=== PATIENT | female | born 1990 | race American Indian/Alaskan Native ===

== ENCOUNTER 2016-10-18 00:33 | Emergency (ER) | payer BC ==
[2016-10-18] MEDS ORDERED: ZOFRAN IV ONE ×2 (00:51→01:58)
[2016-10-18 01:24] LABS: Basophils % (Auto) 0.7 % (0.0-1.8); Eosinophils % (Auto) 0.7 % (0.0-4.3); Hematocrit 40.2 % (30.3-42.9); Hemoglobin 13.4 gm/dl (10.1-14.3); Mean Corpuscular HGB Conc 34 % (30-34); Mean Corpuscular Hemoglobin 33 pg (28-32); Mean Corpuscular Volume 97 fl (79-97); Platelet Count 175 K/mm3 (140-440); Red Blood Count 4.13 M/mm3 (3.65-5.03); Red Cell Distribution Width 12.6 % (13.2-15.2)
[2016-10-18 01:39] LABS: Anion Gap 17 mmol/L; Blood Urea Nitrogen 14 mg/dL (7-17); Calcium 8.8 mg/dL (8.4-10.2); Carbon Dioxide 22 mmol/L (22-30); Glucose 103 mg/dL (65-100); Sodium 138 mmol/L (137-145)
--- NOTE | 2016-10-18 01:57 | Emergency Department Report ---
ED N/V/D HPI - General Chief complaint: Nausea/Vomiting/Diarrhea Stated complaint: STOMACH PAIN/EMESIS Time Seen by Provider: 10/18/16 01:45 Source: patient Mode of arrival: Ambulatory Limitations: No Limitations - History of Present Illness Initial comments: This is a 26-year-old female who indicates that she started becoming nauseous throughout the day today. She also has some epigastric pain associated with this as well. She denies any diarrhea. She is actually had emesis several times today as well. This is cost her epigastric pain didn't worsen. She denies any sick contacts or questionable foods. She denies any radiation of this pain she describes it as sharp in nature. Denies a history of dyspepsia in general. Associated Symptoms: loss of appetite. denies: chest pain, cough, headaches, shortness of breath - Related Data Previous Rx's Medication Instructions Recorded Last Taken Type Ondansetron [Zofran TAB] 4 mg PO Q8HR PRN #10 tablet 10/18/16 Unknown Rx oxyCODONE /ACETAMINOPHEN [Percocet 1 tab PO Q6HR PRN #20 tablet 10/18/16 Unknown Rx 5/325] Allergies Allergy/AdvReac Type Severity Reaction Status Date / Time No Known Allergies Allergy Verified 10/18/16 01:48 ED Review of Systems ROS: Stated complaint: STOMACH PAIN/EMESIS Other details as noted in HPI Comment: All other systems reviewed and negative Constitutional: denies: chills, fever Eyes: denies: eye pain, eye discharge, vision change ENT: denies: ear pain, throat pain Respiratory: denies: cough, shortness of breath, wheezing Cardiovascular: denies: chest pain, palpitations Endocrine: no symptoms reported Gastrointestinal: abdominal pain, nausea, vomiting, other (anorexia). denies: diarrhea Genitourinary: denies: urgency, dysuria, discharge Musculoskeletal: denies: back pain, joint swelling, arthralgia Skin: denies: rash, lesions Neurological: denies: headache, weakness, paresthesias Psychiatric: denies: anxiety, depression Hematological/Lymphatic: denies: easy bleeding, easy bruising ED Past Medical Hx - Past Medical History Previous Medical History?: No - Surgical History Past Surgical History?: No - Social History Smoking Status: Never Smoker - Medications Home Medications: Home Medications Medication Instructions Recorded Confirmed Last Taken Type Ondansetron [Zofran TAB] 4 mg PO Q8HR PRN #10 tablet 10/18/16 Unknown Rx oxyCODONE /ACETAMINOPHEN [Percocet 1 tab PO Q6HR PRN #20 tablet 10/18/16 Unknown Rx 5/325] ED Physical Exam - General Limitations: No Limitations General appearance: alert, in distress (due to pains) - Head Head exam: Present: atraumatic, normocephalic - Eye Eye exam: Present: normal appearance, EOMI. Absent: scleral icterus - ENT ENT exam: Present: normal exam, normal orophraynx, mucous membranes moist - Neck Neck exam: Present: normal inspection. Absent: meningismus, lymphadenopathy - Respiratory Respiratory exam: Present: normal lung sounds bilaterally. Absent: respiratory distress, wheezes, rales - Cardiovascular Cardiovascular Exam: Present: regular rate, normal rhythm. Absent: systolic murmur, diastolic murmur, rubs, gallop - GI/Abdominal GI/Abdominal exam: Present: soft, tenderness (epigastric, minimal), normal bowel sounds. Absent: guarding - Extremities Exam Extremities exam: Present: normal inspection. Absent: tenderness, pedal edema, calf tenderness - Back Exam Back exam: Present: normal inspection. Absent: tenderness, CVA tenderness (R), CVA tenderness (L) - Neurological Exam Neurological exam: Present: alert, oriented X3 - Psychiatric Psychiatric exam: Present: normal affect, normal mood - Skin Skin exam: Present: warm, dry, intact, normal color. Absent: rash ED Course Vital Signs 10/18/16 10/18/16 10/18/16 00:38 00:45 00:52 Temperature 98.7 F 98.7 F 98 F Pulse Rate 76 76 80 Respiratory 18 18 Rate Blood Pressure 116/78 Blood Pressure 128/82 111/78 [Right] O2 Sat by Pulse 97 100 98 Oximetry - Reevaluation(s) Reevaluation #1: 10/18/16 04:39 Patient's pain appears to be out of proportion to exam findings. I'm suspicious of dyspepsia versus gastritis as the etiology for her discomforts. Difficult to know which came first meaning nausea vomiting leading to the dyspepsia/gastritis versus alternative. Regardless at this point I have started her on antacids as well as vacation for pain and nausea. She has been given 2 L saline bolus to help her get back on top of things. I think she'll do well as an outpatient. I did encourage her to be very glad with her diet. Labs are noted again. No specific concerning findings were noted on these. Bedside ultrasound was performed as well this did demonstrate moderately dilated gallbladder with no wall thickening. There is some small amount of sludge and debris that is dependent noted in the gallbladder. She does sonographically have some tenderness over the gallbladder as well. I do not feel this is the primary etiology of her discomfort spell she has normal LFTs as well as a normal life to lipase and alkaline phosphatase. Patient does have some medical knowledge. She is completely agreeable to coming to the hospital if her pain persists or worsens. Otherwise stable time. ED Medical Decision Making - Lab Data Result diagrams: 10/18/16 Unknown 10/18/16 Unknown Critical care attestation.: If time is entered above; I have spent that time in minutes in the direct care of this critically ill patient, excluding procedure time. ED Disposition Clinical Impression: Abdominal pain Qualifiers: Abdominal location: epigastric Qualified Code(s): R10.13 - Epigastric pain Nausea & vomiting Qualifiers: Vomiting type: unspecified Vomiting Intractability: non-intractable Qualified Code(s): R11.2 - Nausea with vomiting, unspecified Disposition: DISCHARGED TO HOME OR SELFCARE Is pt being admited?: No Does the pt Need Aspirin: No Condition: Stable Instructions: Acute Nausea and Vomiting (ED) Additional Instructions: Gradually advance your diet as tolerated. Eat a bland diet. Take your pain medication as needed. Return if your pain persists or worsens. Prescriptions: Ondansetron [Zofran TAB] 4 mg PO Q8HR PRN #10 tablet PRN Reason: Nausea oxyCODONE /ACETAMINOPHEN [Percocet 5/325] 1 tab PO Q6HR PRN #20 tablet PRN Reason: Pain Referrals: PRIMARY CARE, [Referring] - 3-5 Days Forms: Work/School Release Form(ED) Time of Disposition: 03:27
[2016-10-18] MEDS ORDERED: DILAUDID IV ONE (01:58)
[2016-10-18] MEDS ORDERED: NACL 0.9% 1000 ML 1,000 ML IV ONE ×2 (01:58→02:52)
[2016-10-18 02:38] LABS: Alanine Aminotransferase 10 units/L (7-56); Albumin 3.9 g/dL (3.9-5); Albumin/Globulin Ratio 1.2 %; Alkaline Phosphatase 52 units/L (35-129); Bilirubin,Total 0.5 mg/dL (0.1-1.2); Lipase 31 units/L (13-60); Total Protein 7.2 g/dL (6.3-8.2)
[2016-10-18 02:39] LABS: Bilirubin,Direct < 0.2 mg/dL (0-0.2); Bilirubin,Indirect 0.3 mg/dL
[2016-10-18 05:00] VITALS: BP 111/64
[2016-10-18 17:13] LABS: Bilirubin,Urine NEG (Negative); Blood,Urine LG (Negative); Ketones,Urine 20 mg/dL (Negative); Leukocyte Esterase,Urine NEG (Negative); Nitrite,Urine NEG (Negative); Protein,Urine <15 mg/dL mg/dL (Negative); Urobilinogen,Urine < 2.0 mg/dL (<2.0); WBC,Urine < 1.0 /HPF (0.0-6.0)
[2016-10-18 17:21] LABS: RBC,Urine < 1.0 /HPF (0.0-6.0)
== END 2016-10-18 04:58 | disposition home or self-care (01) ==
LOC: ED 00:33
DX: R10.13 Epigastric pain (principal); R11.2 Nausea with vomiting, unspecified
CPT/HCPCS: 36415; 80048; 80074; 81001; 81025; 83690; 85025; 96361; 96374; 96375; 96376; 99283; J1170; J2405; J7030

== ENCOUNTER 2016-10-18 14:07 | Inpatient (IN) | payer BC ==
[2016-10-18] MEDS ORDERED: ZOFRAN IV ONE (14:40)
[2016-10-18] MEDS ORDERED: NACL 0.9% 1000 ML 1,000 ML IV ONE (14:40)
[2016-10-18] MEDS ORDERED: MORPHINE IV ONE (14:40)
--- NOTE | 2016-10-18 14:54 | Emergency Department Report ---
ED Abdominal Pain HPI - General Chief Complaint: Abdominal Pain Stated Complaint: ABD PAIN/VOMITTING Time Seen by Provider: 10/18/16 14:22 Source: patient, old records reviewed Mode of arrival: Ambulatory Limitations: No Limitations - History of Present Illness Initial Comments: 26-year-old female presents to the emergency department complaining of abdominal pain. Patient was seen in the emergency department last night for the same complaints. She reports onset of epigastric and right upper quadrant abdominal pain and partially 9 PM last night after eating a hamburger. Patient describes sharp, nonradiating pain. She reports nausea and multiple episodes of vomiting. Emesis has been green to yellow in color. There has been no fever or diarrhea. On her previous visit to the emergency department, patient received IV fluids and medication. She was feeling better. She had labs are unremarkable and a bedside ultrasound showing a distended gallbladder with sludge without evidence of pericholecystic fluid or thickened gallbladder wall. There are no other complaints. MD Complaint: abdominal pain -: Sudden, Last night Time: 21:00 Location: RUQ, epigastric Radiation: none Migration to: no migration Severity: moderate Severity scale (0 -10): 6 Quality: sharp Consistency: constant Improves With: nothing Worsens With: nothing Associated Symptoms: nausea, vomiting - Related Data Previous Rx's Medication Instructions Recorded Last Taken Type Ondansetron [Zofran TAB] 4 mg PO Q8HR PRN #10 tablet 10/18/16 Unknown Rx oxyCODONE /ACETAMINOPHEN [Percocet 1 tab PO Q6HR PRN #20 tablet 10/18/16 Unknown Rx 5/325] Allergies Allergy/AdvReac Type Severity Reaction Status Date / Time No Known Allergies Allergy Verified 10/18/16 01:48 ED Review of Systems ROS: Stated complaint: ABD PAIN/VOMITTING Other details as noted in HPI Comment: All other systems reviewed and negative Gastrointestinal: abdominal pain, nausea, vomiting ED Past Medical Hx - Past Medical History Previous Medical History?: No - Surgical History Past Surgical History?: No - Family History Family history: no significant - Social History Smoking Status: Never Smoker Substance Use Type: None - Medications Home Medications: Home Medications Medication Instructions Recorded Confirmed Last Taken Type Ondansetron [Zofran TAB] 4 mg PO Q8HR PRN #10 tablet 10/18/16 Unknown Rx oxyCODONE /ACETAMINOPHEN [Percocet 1 tab PO Q6HR PRN #20 tablet 10/18/16 Unknown Rx 5/325] ED Physical Exam - General Limitations: No Limitations General appearance: alert, in no apparent distress - Head Head exam: Present: atraumatic, normocephalic - Eye Eye exam: Present: normal appearance, PERRL, EOMI - ENT ENT exam: Present: normal exam, normal orophraynx, mucous membranes moist - Neck Neck exam: Present: normal inspection, full ROM. Absent: tenderness - Respiratory Respiratory exam: Present: normal lung sounds bilaterally. Absent: respiratory distress - Cardiovascular Cardiovascular Exam: Present: regular rate, normal rhythm, normal heart sounds - GI/Abdominal GI/Abdominal exam: Present: soft, tenderness (moderate right upper quadrant tenderness to palpation), normal bowel sounds. Absent: distended, guarding, rebound - Extremities Exam Extremities exam: Present: normal inspection, full ROM. Absent: tenderness - Back Exam Back exam: Present: normal inspection, full ROM. Absent: tenderness - Neurological Exam Neurological exam: Present: alert, oriented X3. Absent: motor sensory deficit - Skin Skin exam: Present: warm, dry, intact ED Course Vital Signs 10/18/16 14:12 Temperature 98.4 F Pulse Rate 70 Respiratory 18 Rate Blood Pressure 119/81 O2 Sat by Pulse 100 Oximetry ED Medical Decision Making - Radiology Data Radiology results: report reviewed, image reviewed Abdominal ultrasound reveals evidence of acute cholecystitis with cholelithiasis. There is trace pericholecystic fluid and a distended gallbladder. - Medical Decision Making Imaging results reviewed and discussed the patient. Repeat labs are pending, but labs from last night showing normal white blood cell count and normal LFTs. Patient will be discussed with Dr. Price, surgery. - Differential Diagnosis cholecystitis, cholelithiasis, pancreatitis, gastritis Critical care attestation.: If time is entered above; I have spent that time in minutes in the direct care of this critically ill patient, excluding procedure time. ED Disposition Clinical Impression: Acute calculous cholecystitis Disposition: OP ADMITTED IP TO THIS HOSP Is pt being admited?: Yes Condition: Stable Instructions: Abdominal Pain (ED) Referrals: PRIMARY CARE, [Primary Care Provider] - 3-5 Days Time of Disposition: 16:06
--- NOTE | 2016-10-18 15:49 | Ultrasound Report ---
ULTRASOUND ABDOMEN INDICATION: Abdominal pain. COMPARISON: None similar at this institution. FINDINGS: Abdominal sonography demonstrates normal hepatic contours. No biliary dilatation. Normal echogenicity except for a 2.4 x 2 x 1.8 cm non-shadowing right hepatic echogenic focus, image 15. Gallbladder distended to approximately 11.2 cm in length. Few small echogenic gallstones dependently, individually measuring to the order of 5-6 mm. Gallbladder wall thickness is 2.4 mm. Mild pericholecystic fluid suspected, image 46. Positive sonographic Shell's sign. Common bile duct caliber measures up to 5 mm. Homogenous spleen, 8 cm in length. No ascites. Normal visualized pancreas and IVC. Nonaneurysmal abdominal aorta. Nonhydronephrotic kidneys with top normal renal cortical echogenicity. Right kidney is 9.8 x 4.6 x 5 cm with cortical thickness of 1.1 cm. Left kidney is 10.1 x 5.2 x 5.2 cm with cortical thickness of 1.8 cm. CONCLUSION: 1. Acute cholecystitis sonographically with cholelithiasis and distended gallbladder, as described. 2. Hyperechoic right hepatic lobe focus, presumed hemangioma. 3. Few other incidental findings, as above. Thank you for the opportunity to participate in this patient's care.
--- NOTE | 2016-10-18 15:59 | Admit Criteria Form ---
Admission Criteria Documentation: GALLBLADDER OR BILE DUCT INFLAMMATION OR STONE Clinical Indications for Admission to Inpatient Care ( Place 'X' for any and all applicable criteria): Admission is indicated for patients with ANY ONE of the following(1)(2)(3)(4)(5) : [X]I. Acute cholecystitis as indicated by ALL of the following: [X]a) Right upper quadrant pain, mass, or tenderness [ ]b) Systemic signs of inflammation indicated by ANY ONE of the following: [ ]i) Fever [ ]ii) C-reactive protein level greater than 10 mg/L (95 nmol/L) [ ]iii) White blood cell count greater than 10,000/mm3 (10 x109/L) or less than 4000/mm3 (4 x109/L) [X ]II. Inpatient admission required rather than observation care (Also use Gallbladder or Bile Duct Inflammation or Stone: Observation Care as appropriate) because of ANY ONE of the following: [ ]a) Common bile duct obstruction diagnosed [X ]b) Vomiting that is severe or persistent [ ]c) Severe pain requiring acute inpatient management [ ]d) Signs of intestinal obstruction or peritonitis [A] [ ]e) Severe electrolyte abnormalities requiring inpatient care [ ]f) Absent bowel sounds with complete ileus(8) [ ]g) Hemodynamic instability [ ]h) High fever or infection requiring inpatient admission as indicated by ANY ONE of the following (9): [ ]1) Appropriate outpatient or observation care antimicrobial Treatment. unavailable, not effective, or not feasible [ ]2) Temperature greater than 104.9 degrees F (40.5 degrees C) (oral) [ ]3) Temperature greater than 103.1 degrees F (39.5 degrees C) (oral) or less than 96.8 degrees F (36 degrees C) (rectal) that does not respond to all emergency treatment measures [ ]4) Documented bacteremia [ ]i) IV fluid to replace significant ongoing losses (greater than 3 L/m2 per day) [ ]j) Percutaneous or open drainage (eg, abscess, biliary tract) procedures [ ]k) Immediate inpatient surgery [ ]l) Other condition, treatment or monitoring requiring inpatient admission [ ]III. Acute cholangitis as indicated by ALL of the following(9)(10): [ ]a) Systemic signs of inflammation indicated by ANY ONE of the following: [ ]i) Fever [ ]ii) C-reactive protein level greater than 10 mg/L (95 nmol /L) [ ]iii) White blood cell count greater than 10,000/mm3 (10 x109/L) or less than 4000/mm3 (4 x109/L) [ ]b) Evidence of common bile duct disease indicated by ANY ONE of the following: [ ]i) Total serum bilirubin level greater than or equal to 2 mg/dL (34 micromoles/L) [ ]ii) Liver function test (alkaline phosphatase (ALP), r- glutamyltransferase (GGT), aspartate aminotransferase (AST), or alanine aminotransferase (ALT)) greater than 1.5 times the upper limit of normal[B] [ ]iii) Hepatobiliary imaging showing biliary dilatation or evidence of etiology (eg, stricture, stone, previously placed stent) Extended stay beyond goal length of stay may be needed for (1)(2)): [ ]a) Bacteremia or Hemodynamic instability [ ]b) Cholecystectomy [ ]c) Other surgical procedure(24) [ ]d) Percutaneous or endoscopic ultrasound-guided cholecystostomy The original [facility] content created by [facility] has been revised. The portions of the content which have been revised are identified through the use of italic text or in bold, and [facility] has neither reviewed nor approved the modified material. All other unmodified content is copyright [facility]. Please see references footnoted in the original [facility] edition 2016 Admission Criteria Met: Yes
[2016-10-18 16:30] LABS: Basophils % (Auto) 0.3 % (0.0-1.8); Eosinophils % (Auto) 0.1 % (0.0-4.3); Hematocrit 42.4 % (30.3-42.9); Hemoglobin 14.3 gm/dl (10.1-14.3); Mean Corpuscular HGB Conc 34 % (30-34); Mean Corpuscular Hemoglobin 33 pg (28-32); Mean Corpuscular Volume 97 fl (79-97); Platelet Count 163 K/mm3 (140-440); Red Blood Count 4.36 M/mm3 (3.65-5.03); Red Cell Distribution Width 12.9 % (13.2-15.2); White Blood Count 9.7 K/mm3 (4.5-11.0)
[2016-10-18 16:39] LABS: Alanine Aminotransferase 9 units/L (7-56); Albumin 3.7 g/dL (3.9-5); Albumin/Globulin Ratio 1.2 %; Alkaline Phosphatase 49 units/L (35-129); Anion Gap 13 mmol/L; BUN/Creatinine Ratio 12.85; Bilirubin,Total 0.8 mg/dL (0.1-1.2); Blood Urea Nitrogen 9 mg/dL (7-17); Calcium 8.4 mg/dL (8.4-10.2); Carbon Dioxide 24 mmol/L (22-30); Chloride 99.8 mmol/L (98-107); Glucose 95 mg/dL (65-100); Lipase 102 units/L (13-60); Potassium 3.7 mmol/L (3.6-5.0); Sodium 133 mmol/L (137-145); Total Protein 6.7 g/dL (6.3-8.2)
[2016-10-18 16:45] LABS: Bilirubin,Direct < 0.2 mg/dL (0-0.2); Bilirubin,Indirect 0.6 mg/dL
--- NOTE | 2016-10-18 17:10 | History and Physical Report ---
History of Present Illness Date of examination: 10/18/16 Date of admission: 10/18/2016. Chief complaint: Right upper quadrant abdominal pain. History of present illness: 26 years old female with right upper quadrant abdominal pain. Gallbladder ultrasound showed gallstones with slightly thickened gallbladder wall and some pericholecystic fluid. She was seen here in the ER last night and sent home. She came back today with persistent pain. Reports some nausea and vomiting. Past History Past Medical History: No medical history Past Surgical History: No surgical history Social history: no significant social history, single, Lives alone Family history: no significant family history Medications and Allergies Allergies Allergy/AdvReac Type Severity Reaction Status Date / Time No Known Allergies Allergy Verified 10/18/16 01:48 Home Medications Medication Instructions Recorded Confirmed Last Taken Type Ondansetron [Zofran TAB] 4 mg PO Q8HR PRN #10 tablet 10/18/16 Unknown Rx oxyCODONE /ACETAMINOPHEN [Percocet 1 tab PO Q6HR PRN #20 tablet 10/18/16 Unknown Rx 5/325] Review of Systems All systems: negative (present complaint.) Exam Vital Signs Temp Pulse Resp BP Pulse Ox 98.4 F 70 18 119/81 100 10/18/16 14:12 10/18/16 14:12 10/18/16 14:12 10/18/16 14:12 10/18/16 14:12 - General physical appearance Positive: well developed, well nourished, no distress - Eyes Positive: PERRL, normal occular movement - ENT Positive: normal pinna, normal nares, normal mucosa, no hearing loss, no congestion - Neck Positive: no masses, no bruits, trachea midline, no venous distension - Respiratory Positive: normal expansion, normal respiratory effort, clear to auscultation - Cardiovascular Rhythm: regular Heart Sounds: Present: S1 & S2 - Extremities Extremities: no ischemia, No edema - Breasts Breasts: deferred - Abdomen Abdomen: Present: tender (right upper quadrant tenderness to deep palpation with positive Shell's sign), bowel sounds normal. Absent: distended, rebound, guarding - Genitourinary Male Genitourinary: normal - Integumentary no rash, no growths, no abnormal pigmentation - Neurologic Neurologic: alert and oriented to time, place and person, motor strength and sensation are grossly intact - Musculoskeletal normal gait, normal posture Results - Labs 10/18/16 16:10 10/18/16 16:10 Abnormal lab results 10/18/16 10/18/16 Range/Units 16:10 16:10 MCH 33 H (28-32) pg RDW 12.9 L (13.2-15.2) % Lymph % (Auto) 12.0 L (13.4-35.0) % Stark % (Auto) 7.4 H (0.0-7.3) % Seg Neutrophils % 80.2 H (40.0-70.0) % Seg Neutrophils # 7.8 H (1.8-7.7) K/mm3 Sodium 133 L (137-145) mmol/L Albumin 3.7 L (3.9-5) g/dL Lipase 102 H (13-60) units/L Diabetes panel 10/18/16 Range/Units 16:10 Sodium 133 L (137-145) mmol/L Potassium 3.7 (3.6-5.0) mmol/L Chloride 99.8 (98-107) mmol/L Carbon Dioxide 24 (22-30) mmol/L BUN 9 (7-17) mg/dL Creatinine 0.7 (0.7-1.2) mg/dL Glucose 95 (65-100) mg/dL Calcium 8.4 (8.4-10.2) mg/dL AST 16 (5-40) units/L ALT 9 (7-56) units/L Alkaline Phosphatase 49 (35-129) units/L Total Protein 6.7 (6.3-8.2) g/dL Albumin 3.7 L (3.9-5) g/dL Calcium panel 10/18/16 Range/Units 16:10 Calcium 8.4 (8.4-10.2) mg/dL Albumin 3.7 L (3.9-5) g/dL Pituitary panel 10/18/16 Range/Units 16:10 Sodium 133 L (137-145) mmol/L Potassium 3.7 (3.6-5.0) mmol/L Chloride 99.8 (98-107) mmol/L Carbon Dioxide 24 (22-30) mmol/L BUN 9 (7-17) mg/dL Creatinine 0.7 (0.7-1.2) mg/dL Glucose 95 (65-100) mg/dL Calcium 8.4 (8.4-10.2) mg/dL Adrenal panel 10/18/16 Range/Units 16:10 Sodium 133 L (137-145) mmol/L Potassium 3.7 (3.6-5.0) mmol/L Chloride 99.8 (98-107) mmol/L Carbon Dioxide 24 (22-30) mmol/L BUN 9 (7-17) mg/dL Creatinine 0.7 (0.7-1.2) mg/dL Glucose 95 (65-100) mg/dL Calcium 8.4 (8.4-10.2) mg/dL Total Bilirubin 0.8 (0.1-1.2) mg/dL AST 16 (5-40) units/L ALT 9 (7-56) units/L Alkaline Phosphatase 49 (35-129) units/L Total Protein 6.7 (6.3-8.2) g/dL Albumin 3.7 L (3.9-5) g/dL - Imaging US - abdomen: report reviewed Assessment and Plan Diagnosis impression: Acute cholecystitis and cholelithiasis. Plans: Admit to the hospital. Continue IV fluids and nothing by mouth. Pain medication for pain control. We'll schedule for laparoscopic cholecystectomy tomorrow morning. She was explained the operative procedure, the risk and complications and requested TO perform the procedure.
[2016-10-18] MEDS ORDERED: ZOFRAN IV PRN (17:30)
[2016-10-18] MEDS ORDERED: UNASYN/NS 3 GM/100 ML 3 GM/100 ML BAG IV ONE (18:31)
[2016-10-18] MEDS: UNASYN/NS 3 GM/100 ML 3 GM/100 ML BAG IV SCH ×2 (18:39→23:11)
[2016-10-18] MEDS: MORPHINE IV PRN (23:09)
[2016-10-18] MEDS: ZOFRAN IV PRN (23:09)
[2016-10-18] MEDS: D5W/0.45% NACL/KCL 20 MEQ 20 MEQ/1,000 ML BAG IV SCH (23:12)
[2016-10-19] MEDS: MORPHINE IV PRN (05:10)
[2016-10-19] MEDS: UNASYN/NS 3 GM/100 ML 3 GM/100 ML BAG IV SCH ×2 (05:29→17:38)
[2016-10-19] MEDS: ZOFRAN IV PRN (05:32)
[2016-10-19] MEDS ORDERED: DIPRIVAN 10 MG/ML IV ONE (09:34)
[2016-10-19] MEDS ORDERED: XYLOCAINE MPF 2% ONE (09:35)
[2016-10-19] MEDS ORDERED: DILAUDID ONE (09:35)
--- NOTE | 2016-10-19 10:00 | Anesthesia Day of Surgery ---
Anesthesia Day of Surgery - Day of Surgery Patient Examined: Yes Patient H&P Reviewed: Yes Patient is NPO: Yes
--- NOTE | 2016-10-19 10:02 | Anesthesia Consultation ---
Anesthesia Consult and Med Hx Date of service: 10/19/16 - Airway Anesthetic Teeth Evaluation: Good ROM Head & Neck: Adequate Mental/Hyoid Distance: Adequate Mallampati Class: Class I Intubation Access Assessment: Good - Pulmonary Exam CTA: Yes - Cardiac Exam Cardiac Exam: RRR - Pre-Operative Health Status ASA Pre-Surgery Classification: ASA1 Proposed Anesthetic Plan: General - Pre-Anesthesia Comment Pre-Anesthesia Comments: Pt is breasfeed, daugher/son is 1 year old - Pulmonary Hx Smoking: No - Cardiovascular System Hx Hypertension: No - Hematic Hx Sickle Cell Disease: No - Other Systems Hx Alcohol Use: No - Additional Comments Anesthesia Medical History Comments: No previous anesthesia, denies any familial anesthesia complications
[2016-10-19] MEDS ORDERED: MARCAINE 0.5% 30 ML INFILTRATI ONE (10:26)
[2016-10-19] MEDS ORDERED: LACTATED RINGERS 1,000 ML IV SCH (11:00)
[2016-10-19] MEDS ORDERED: VERSED IV NR (11:00)
[2016-10-19] MEDS ORDERED: PEPCID PO NR (11:00)
[2016-10-19] MEDS ORDERED: NEOSTIGMINE ONE (11:12)
[2016-10-19] MEDS ORDERED: ROBINUL ONE (11:12)
[2016-10-19] MEDS ORDERED: DECADRON ONE (11:32)
[2016-10-19] MEDS ORDERED: ZOFRAN ONE (11:32)
[2016-10-19] MEDS ORDERED: MARCAINE 0.5% INFILTRATI ONE (11:43)
[2016-10-19] MEDS ORDERED: NACL 0.9% IR ONE ×2 (11:43)
[2016-10-19] MEDS ORDERED: NEO SYNEPHRINE/NS Syringe(OR USE) IV ONE (11:51)
[2016-10-19] MEDS ORDERED: ARTIFICIAL TEARS OPHTH OINT ONE (12:40)
--- NOTE | 2016-10-19 12:40 | Post Anesthesia Evaluation ---
- Post Anesthesia Evaluation Patient Participated: Yes Airway Patent: Yes Stable Respiratory Function: Yes Nausea/Vomiting: No Temp > 96.8F: Yes Pain Manageable: Yes Adequeate Hydration: Yes Anesthesia Complications: No
--- NOTE | 2016-10-19 12:50 | Operative Report ---
Operative Report Operative Report: Date of operation: 10/19/2016. Preoperative diagnoses: Acute cholecystitis and cholelithiasis. Postoperative diagnosis: #1. Acute cholecystitis and cholelithiasis #2. Extensive peritoneal adhesions. Operation: #1. Laparoscopic cholecystectomy. #2. Laparoscopic lysis of adhesions. Surgeon: Ray Price M.D. Asst.: Doroteo Acharya M.D. Findings: 26 years old female admitted to the hospital last night with diagnosis of acute cholecystitis and cholelithiasis. Patient was started on IV Unasyn and is scheduled for surgery this morning. At operation we found an acutely inflamed gallbladder with extensive omental adhesions to the gallbladder in the right upper quadrant, the axis of these adhesions took 75-80 % of the time of the operation. The gallbladder wall was thick. The cystic duct seemed to be of normal caliber as well as the common bile duct. Procedure: Under general anesthesia the patient was prepped and draped in the usual sterile manner. Marcaine 0.5% was injected in the infraumbilical area and a 5 mm incision was then made with a #11 blade. Through this incision a Veress needle was passed in the abdominal cavity. The cavity was insufflated with carbon dioxide to 15 mmHg. The needle was removed and a 5 mm port was put in place using the Cook123 system. Through this port a 5 mm telescope was passed under direct vision a 10 mm port was put in the epigastric area and two 5 mm ports were put in the right subcostal area. Then some of the adhesions from the fundus of the gallbladder were taken down with the [place] dissector and a laparoscopic needle was used to enter the gallbladder of bile. After this was done we performed lysis of adhesions of the omentum to the gallbladder using the Endo Amy with electrocautery. This took about 80% of the time of the operation. When the infundibulum was reached we continued dissection using an endo-Kittner to identify the cystic duct. The cystic artery was also identified and dissected with the Endo Kitner. We continued dissection of the cystic duct to obtain the critical view of safety. After this was done the cystic duct and the cystic artery were divided distal to 3 hemoclips. Then the gallbladder was dissected from the gallbladder bed using the J-hook electrocautery. The gallbladder was put in an Endobag and removed through the epigastric port site. The trocar was replaced. The right upper quadrant was irrigated with copious amount of normal saline solution until clear. The scope was then put in the epigastric port and the 35 mm ports were removed under direct vision. The sites were dry and clear. The telescope was removed and the abdominal cavity was emptied of carbon dioxide through the epigastric port which was then removed. The fascia at the epigastric port site was approximated with a [id number] stitch of 0 Vicryl. The wounds were then irrigated with normal saline solution and the skin edges were approximated with intracuticular sutures of 4-0 Vicryl. The patient was awakened, extubated and transferred to the recovery room in good condition. Estimated blood loss: Less than 25 mL. Intravenous fluid replacement: Crystalloids. Condition: Stable. Specimens: Gallbladder. Complications: None.
[2016-10-19] MEDS ORDERED: COMPAZINE PO PRN (12:54)
[2016-10-19] MEDS: DILAUDID IV PRN ×2 (13:55→18:11)
[2016-10-19] MEDS: D5W/0.45% NACL/KCL 20 MEQ 20 MEQ/1,000 ML BAG IV SCH (17:37)
[2016-10-19] MEDS: NORCO 5/325 PO PRN (20:00)
[2016-10-20] MEDS: DILAUDID IV PRN (04:35)
[2016-10-20 05:53] LABS: Basophils % (Auto) 0.3 % (0.0-1.8); Eosinophils % (Auto) 0.2 % (0.0-4.3); Hematocrit 37.2 % (30.3-42.9); Hemoglobin 12.3 gm/dl (10.1-14.3); Mean Corpuscular HGB Conc 33 % (30-34); Mean Corpuscular Hemoglobin 33 pg (28-32); Mean Corpuscular Volume 99 fl (79-97); Platelet Count 160 K/mm3 (140-440); Red Blood Count 3.77 M/mm3 (3.65-5.03); Red Cell Distribution Width 12.6 % (13.2-15.2); White Blood Count 6.9 K/mm3 (4.5-11.0)
[2016-10-20 06:18] LABS: Alanine Aminotransferase 363 units/L (7-56); Albumin 3.4 g/dL (3.9-5); Albumin/Globulin Ratio 1.5 %; Alkaline Phosphatase 113 units/L (35-129); Anion Gap 15 mmol/L; BUN/Creatinine Ratio 7.14; Bilirubin,Total 4.6 mg/dL (0.1-1.2); Blood Urea Nitrogen 5 mg/dL (7-17); Calcium 8.2 mg/dL (8.4-10.2); Carbon Dioxide 27 mmol/L (22-30); Chloride 102.6 mmol/L (98-107); Glucose 108 mg/dL (65-100); Potassium 4.1 mmol/L (3.6-5.0); Sodium 140 mmol/L (137-145); Total Protein 5.7 g/dL (6.3-8.2)
[2016-10-20] MEDS: UNASYN/NS 3 GM/100 ML 3 GM/100 ML BAG IV SCH ×6 (08:04→23:52)
[2016-10-20] MEDS: NORCO 5/325 PO PRN ×3 (08:08→22:43)
--- NOTE | 2016-10-20 08:22 | Progress Note ---
Assessment and Plan IMP: Hyperbilirubinemia. PLAN: Repeat CMP tomorrow. Subjective Date of service: 10/20/16 Patient Reports: Positive: no new complaints, feels better, pain is less, voiding w/o difficulty Objective Vital Signs - 12hr 10/19/16 10/19/16 10/20/16 21:00 22:00 00:00 Temperature 99.3 F Pulse Rate [ 70 Radial] Respiratory 18 18 16 Rate Blood Pressure 109/65 [Left Arm] O2 Sat by Pulse 100 Oximetry 10/20/16 10/20/16 10/20/16 04:00 04:35 07:10 Temperature 98.9 F 97.7 F Pulse Rate [ 69 67 Radial] Respiratory 16 18 20 Rate Blood Pressure 110/64 108/66 [Left Arm] O2 Sat by Pulse 100 97 Oximetry - Abdomen soft, tender (op site), bowel sounds normal - Labs 10/20/16 05:09 10/20/16 05:09 Diabetes panel 10/20/16 Range/Units 05:09 Sodium 140 D (137-145) mmol/L Potassium 4.1 (3.6-5.0) mmol/L Chloride 102.6 (98-107) mmol/L Carbon Dioxide 27 (22-30) mmol/L BUN 5 L (7-17) mg/dL Creatinine 0.7 (0.7-1.2) mg/dL Glucose 108 H (65-100) mg/dL Calcium 8.2 L (8.4-10.2) mg/dL AST 367 H (5-40) units/L ALT 363 H (7-56) units/L Alkaline Phosphatase 113 (35-129) units/L Total Protein 5.7 L (6.3-8.2) g/dL Albumin 3.4 L (3.9-5) g/dL Calcium panel 10/20/16 Range/Units 05:09 Calcium 8.2 L (8.4-10.2) mg/dL Albumin 3.4 L (3.9-5) g/dL Pituitary panel 10/20/16 Range/Units 05:09 Sodium 140 D (137-145) mmol/L Potassium 4.1 (3.6-5.0) mmol/L Chloride 102.6 (98-107) mmol/L Carbon Dioxide 27 (22-30) mmol/L BUN 5 L (7-17) mg/dL Creatinine 0.7 (0.7-1.2) mg/dL Glucose 108 H (65-100) mg/dL Calcium 8.2 L (8.4-10.2) mg/dL Adrenal panel 10/20/16 Range/Units 05:09 Sodium 140 D (137-145) mmol/L Potassium 4.1 (3.6-5.0) mmol/L Chloride 102.6 (98-107) mmol/L Carbon Dioxide 27 (22-30) mmol/L BUN 5 L (7-17) mg/dL Creatinine 0.7 (0.7-1.2) mg/dL Glucose 108 H (65-100) mg/dL Calcium 8.2 L (8.4-10.2) mg/dL Total Bilirubin 4.6 H (0.1-1.2) mg/dL AST 367 H (5-40) units/L ALT 363 H (7-56) units/L Alkaline Phosphatase 113 (35-129) units/L Total Protein 5.7 L (6.3-8.2) g/dL Albumin 3.4 L (3.9-5) g/dL
[2016-10-20] MEDS: D5W/0.45% NACL/KCL 20 MEQ 20 MEQ/1,000 ML BAG IV SCH (22:45)
[2016-10-21] MEDS: ZOFRAN IV PRN ×3 (00:46→13:38)
[2016-10-21] MEDS: MORPHINE IV PRN ×3 (00:46→07:16)
[2016-10-21 04:41] LABS: Alanine Aminotransferase 273 units/L (7-56); Albumin 3.4 g/dL (3.9-5); Albumin/Globulin Ratio 1.3 %; Alkaline Phosphatase 107 units/L (35-129); Anion Gap 17 mmol/L; BUN/Creatinine Ratio 5.71; Bilirubin,Total 5.3 mg/dL (0.1-1.2); Blood Urea Nitrogen 4 mg/dL (7-17); Calcium 8.4 mg/dL (8.4-10.2); Carbon Dioxide 26 mmol/L (22-30); Chloride 99.8 mmol/L (98-107); Glucose 120 mg/dL (65-100); Potassium 3.9 mmol/L (3.6-5.0); Sodium 139 mmol/L (137-145)
[2016-10-21] MEDS: UNASYN/NS 3 GM/100 ML 3 GM/100 ML BAG IV SCH ×4 (05:56→23:41)
--- NOTE | 2016-10-21 08:40 | Progress Note ---
Assessment and Plan IMP: Hyperbilirubinemia, retained stonesd vs injury. PLAN: NPO. Spoke with Dr. Lee from gastroenterology, he will evaluate and schedule ERCP. Subjective Date of service: 10/21/16 Patient Reports: Positive: still having pain, nausea, vomiting Objective Vital Signs - 12hr 10/20/16 10/20/16 10/21/16 22:43 23:43 00:46 Temperature Pulse Rate [ Radial] Respiratory 20 20 20 Rate Blood Pressure [Left Arm] O2 Sat by Pulse Oximetry 10/21/16 10/21/16 10/21/16 01:16 03:29 03:59 Temperature Pulse Rate [ Radial] Respiratory 20 20 18 Rate Blood Pressure [Left Arm] O2 Sat by Pulse Oximetry 10/21/16 10/21/16 07:16 07:49 Temperature 99 F Pulse Rate [ 70 Radial] Respiratory 20 18 Rate Blood Pressure 122/71 [Left Arm] O2 Sat by Pulse 97 Oximetry - Abdomen soft, bowel sounds normal - Labs 10/20/16 05:09 10/21/16 03:51 Diabetes panel 10/21/16 Range/Units 03:51 Sodium 139 (137-145) mmol/L Potassium 3.9 (3.6-5.0) mmol/L Chloride 99.8 (98-107) mmol/L Carbon Dioxide 26 (22-30) mmol/L BUN 4 L (7-17) mg/dL Creatinine 0.7 (0.7-1.2) mg/dL Glucose 120 H (65-100) mg/dL Calcium 8.4 (8.4-10.2) mg/dL AST 142 H (5-40) units/L ALT 273 H (7-56) units/L Alkaline Phosphatase 107 (35-129) units/L Total Protein 6.0 L (6.3-8.2) g/dL Albumin 3.4 L (3.9-5) g/dL Calcium panel 10/21/16 Range/Units 03:51 Calcium 8.4 (8.4-10.2) mg/dL Albumin 3.4 L (3.9-5) g/dL Pituitary panel 10/21/16 Range/Units 03:51 Sodium 139 (137-145) mmol/L Potassium 3.9 (3.6-5.0) mmol/L Chloride 99.8 (98-107) mmol/L Carbon Dioxide 26 (22-30) mmol/L BUN 4 L (7-17) mg/dL Creatinine 0.7 (0.7-1.2) mg/dL Glucose 120 H (65-100) mg/dL Calcium 8.4 (8.4-10.2) mg/dL Adrenal panel 10/21/16 Range/Units 03:51 Sodium 139 (137-145) mmol/L Potassium 3.9 (3.6-5.0) mmol/L Chloride 99.8 (98-107) mmol/L Carbon Dioxide 26 (22-30) mmol/L BUN 4 L (7-17) mg/dL Creatinine 0.7 (0.7-1.2) mg/dL Glucose 120 H (65-100) mg/dL Calcium 8.4 (8.4-10.2) mg/dL Total Bilirubin 5.3 H (0.1-1.2) mg/dL AST 142 H (5-40) units/L ALT 273 H (7-56) units/L Alkaline Phosphatase 107 (35-129) units/L Total Protein 6.0 L (6.3-8.2) g/dL Albumin 3.4 L (3.9-5) g/dL
[2016-10-21] MEDS ORDERED: COMPAZINE IV PRN (08:42)
[2016-10-21] MEDS: DILAUDID IV PRN ×4 (09:29→23:39)
--- NOTE | 2016-10-21 09:34 | Gastroenterology Consultation ---
History of Present Illness - Reason for Consult Consult date: 10/21/16 obstructive jaundice Requesting physician: MARIA EUGENIA SIMON - History of Present Illness The patient is a 26 year old female, previously healthy except for symptomatic GB stones who underwent lap alexander 2 days ago. The bile duct was mildly enlarged as noted at surgery, however LFTs were completely normal prior to surgery. Post operatively her bilirubin has gone up to 4 then 5.3 and is associated with nausea and upper abdominal discomfort. A CBD stone with impaction is suspected and consultation was therefore requested. Past History Past Medical History: No medical history Past Surgical History: No surgical history Social history: no significant social history, single, Lives alone Family history: no significant family history Medications and Allergies Allergies Allergy/AdvReac Type Severity Reaction Status Date / Time No Known Allergies Allergy Verified 10/18/16 01:48 Home Medications Medication Instructions Recorded Confirmed Last Taken Type No Known Home Medications [No 10/18/16 10/18/16 Unknown History Reported Home Medications] Active Meds: Active Medications Acetaminophen/Hydrocodone Bitart (Dobbins 5/325) 1 each PO Q4H PRN PRN Reason: Pain, Moderate (4-6) Last Admin: 10/20/16 22:43 Dose: 1 each Hydromorphone HCl (Dilaudid) 2 mg IV Q4H PRN PRN Reason: Pain , Severe (7-10) Last Admin: 10/21/16 09:29 Dose: 1 mg Ampicillin Sodium/Sulbactam Sodium (Unasyn/Ns 3 Gm/100 Ml) 3 gm in 100 mls @ 100 mls/hr IV Q6HR ANGIE PRN Reason: Protocol Last Admin: 10/21/16 05:56 Dose: 100 mls/hr Potassium Chloride/Dextrose/Sod Cl (D5w/0.45% Nacl/Kcl 20 Meq) 20 meq in 1,000 mls @ 100 mls/hr IV DIRECT ANGIE Last Admin: 10/20/16 22:45 Dose: 100 mls/hr Ondansetron HCl (Zofran) 4 mg IV Q4H PRN PRN Reason: Nausea And Vomiting Last Admin: 10/21/16 09:30 Dose: 4 mg Prochlorperazine Edisylate (Compazine) 10 mg IV Q6H PRN PRN Reason: Nausea And Vomiting Prochlorperazine Maleate (Compazine) 10 mg PO Q6H PRN PRN Reason: Nausea And Vomiting Review of Systems - Review of Systems Constitutional: no weight loss, no weight gain Eyes: no change in vision Ears, Nose, Throat: no decreased hearing, no difficulty swallowing, no epistaxis Breasts: deferred Cardiovascular: no chest pain, no shortness of breath, no syncope Respiratory: no cough, no shortness of breath, no wheezing Gastrointestinal: nausea, vomiting, no abdominal pain, no constipation, no change in bowel habits, no hematemesis, no BRBPR, no melena Rectal: no pain, no bleeding Female Genitourinary: deferred Musculoskeletal: no gait dysfunction, no joint pain, no muscle pain Integumentary: jaundice, no rash, no pruritis Neurological: no head injury, no paralysis, no weakness, no parasthesias Psychiatric: no anxiety, no memory loss Endocrine: no cold intolerance, no heat intolerance Hematologic/Lymphatic: no easy bruising, no easy bleeding Allergic/Immunologic: no wheezing Exam - Constitutional Vital Signs: Temp Pulse Resp BP Pulse Ox 99 F 70 18 122/71 97 10/21/16 07:49 10/21/16 07:49 10/21/16 07:49 10/21/16 07:49 10/21/16 07:49 General appearance: mild distress - EENT Eyes: PERRL ENT: hearing intact, clear oral mucosa, dentition normal - Neck Neck: supple, normal ROM, no masses or JVD - Respiratory Respiratory effort: normal Respiratory: bilateral: CTA - Breasts Breasts: deferred - Cardiovascular Rhythm: regular Heart Sounds: Present: S1 & S2. Absent: gallop, rub Extremities: pulses intact, No edema, normal color, Full ROM - Gastrointestinal General gastrointestinal: Present: soft, tender (mild diffuse tenderness without rebound or guarding), non-distended, normal bowel sounds, hepatomegaly, splenomegaly, other (laparoscopic incisions are clean and dry) Rectal Exam: deferred - Genitourinary Female Genitourinary: deferred - Integumentary Integumentary: Present: clear, warm, dry - Musculoskeletal Musculoskeletal: normal - Neurologic Neurological: alert and oriented x3 - Psychiatric Psychiatric: appropriate mood/affect, intact judgment & insight, memory intact - Labs CBC & Chem 7: 10/20/16 05:09 10/21/16 03:51 Lab Results: Laboratory Results - last 24 hr 10/21/16 03:51 Sodium 139 Potassium 3.9 Chloride 99.8 Carbon Dioxide 26 Anion Gap 17 BUN 4 L Creatinine 0.7 Estimated GFR > 60 BUN/Creatinine Ratio 5.71 Glucose 120 H Calcium 8.4 Total Bilirubin 5.3 H AST 142 H ALT 273 H Alkaline Phosphatase 107 Total Protein 6.0 L Albumin 3.4 L Albumin/Globulin Ratio 1.3 Laboratory Results - last 24 hr 10/21/16 03:51 Sodium 139 Potassium 3.9 Chloride 99.8 Carbon Dioxide 26 Anion Gap 17 BUN 4 L Creatinine 0.7 Estimated GFR > 60 BUN/Creatinine Ratio 5.71 Glucose 120 H Calcium 8.4 Total Bilirubin 5.3 H AST 142 H ALT 273 H Alkaline Phosphatase 107 Total Protein 6.0 L Albumin 3.4 L Albumin/Globulin Ratio 1.3 Assessment and Plan - Patient Problems (1) Obstructive jaundice Current Visit: Yes Status: Acute Plan to address problem: CBD stones are suspected in this setting. Patient was advised of a small chance of a clip on the bile duct alternatively. ERCP is indicated for removal of stones and the procedure was discussed at length as far as the details of the procedure, technique, alternatives ( open exploration), benefits and risks including but not limited to bleeding, pancreatitis, perforation and cardiovascular complications of anesthesia. She is in agreement with this procedure which will be planned tomorrow. Thank you very much Dr. Simon for asking me to see her in consultation. (2) Acute calculous cholecystitis Current Visit: Yes Status: Acute (3) Abdominal pain Current Visit: No Status: Acute Qualifiers: Abdominal location: epigastric Qualified Code(s): R10.13 - Epigastric pain (4) Nausea & vomiting Current Visit: No Status: Acute Qualifiers: Vomiting type: unspecified Vomiting Intractability: non-intractable Qualified Code(s): R11.2 - Nausea with vomiting, unspecified
[2016-10-21] MEDS: D5W/0.45% NACL/KCL 20 MEQ 20 MEQ/1,000 ML BAG IV SCH (12:03)
[2016-10-22] MEDS ORDERED: XYLOCAINE MPF 2% ONE ×2 (00:24→08:31)
[2016-10-22] MEDS ORDERED: QUELICIN ONE (00:24)
[2016-10-22] MEDS: DILAUDID IV PRN ×2 (03:48→11:55)
[2016-10-22] MEDS: D5W/0.45% NACL/KCL 20 MEQ 20 MEQ/1,000 ML BAG IV SCH (03:49)
[2016-10-22] MEDS: UNASYN/NS 3 GM/100 ML 3 GM/100 ML BAG IV SCH ×3 (05:19→17:50)
[2016-10-22 05:57] LABS: Alanine Aminotransferase 236 units/L (7-56); Albumin 3.3 g/dL (3.9-5); Albumin/Globulin Ratio 1.1 %; Alkaline Phosphatase 119 units/L (35-129); Anion Gap 15 mmol/L; BUN/Creatinine Ratio 5.71; Bilirubin,Total 5.9 mg/dL (0.1-1.2); Blood Urea Nitrogen 4 mg/dL (7-17); Calcium 8.7 mg/dL (8.4-10.2); Carbon Dioxide 29 mmol/L (22-30); Chloride 98.1 mmol/L (98-107); Glucose 132 mg/dL (65-100); Potassium 4.3 mmol/L (3.6-5.0); Sodium 138 mmol/L (137-145); Total Protein 6.4 g/dL (6.3-8.2)
[2016-10-22] MEDS ORDERED: NACL 0.9% 1000 ML 1,000 ML ONE (07:15)
[2016-10-22] MEDS ORDERED: NACL 0.9% 100 ML ONE (07:34)
[2016-10-22] MEDS ORDERED: WATER FOR IRRIG STERILE IR ONE (07:58)
[2016-10-22] MEDS ORDERED: NACL 0.9% 1000 ML 1,000 ML IV SCH (08:00)
[2016-10-22] MEDS ORDERED: DIPRIVAN 10 MG/ML IV ONE ×2 (08:18→08:48)
[2016-10-22] MEDS ORDERED: SUBLIMAZE ONE (08:18)
[2016-10-22] MEDS ORDERED: GLUCAGEN ONE (08:19)
--- NOTE | 2016-10-22 09:16 | Anesthesia Day of Surgery ---
Anesthesia Day of Surgery - Day of Surgery Patient Examined: Yes Patient H&P Reviewed: Yes Patient is NPO: Yes Beta Blockers: No Cardiac Clearance: No Pulmonary Clearance: No
--- NOTE | 2016-10-22 09:17 | Anesthesia Consultation ---
Anesthesia Consult and Med Hx Date of service: 10/22/16 - Airway Anesthetic Teeth Evaluation: Good ROM Head & Neck: Adequate Mental/Hyoid Distance: Adequate Mallampati Class: Class I Intubation Access Assessment: Good - Pulmonary Exam CTA: Yes (clear blbs) - Cardiac Exam Cardiac Exam: RRR - Pre-Operative Health Status ASA Pre-Surgery Classification: ASA2 Proposed Anesthetic Plan: General - Pulmonary Hx Smoking: No - Cardiovascular System Hx Hypertension: No - Gastrointestinal Hx Ulcer: No (+ nausesa and vomiting) - Hematic Hx Sickle Cell Disease: No - Other Systems Hx Alcohol Use: No - Additional Comments Anesthesia Medical History Comments: No previous anesthesia, denies any familial anesthesia complications
--- NOTE | 2016-10-22 09:46 | Operative Report ---
Operative Report Operative Report: Date of procedure: 10/22/2016 Preprocedure diagnoses: Obstructive jaundice post laparoscopic cholecystectomy 3 days ago. Suspected common bile duct stone. Postprocedure diagnoses: Suspected tiny common bile duct stone. Procedure: Endoscopic retrograde cholangiography with papillotomy and balloon sweeping of the duct. Medications: Propofol under monitored anesthesia care-see separate records for details Estimated blood loss: 0 Endoscopist: Sebastien Lee M.D. After careful discussion of the nature and purpose of the procedure, risks, benefits, and alternatives consent was obtained. The patient was placed in the supine position on the fluoroscopy table and medicated per anesthesia. The [employer] 570 side-viewing therapeutic videoscope was carefully passed per orum into the esophagus and advanced into the stomach. The stomach was insufflated with air and the contents aspirated clear. The scope was initially retroflexed. The cardia and fundus were normal. The scope was then straightened and further advanced. The antrum is normal. The scope was passed through the pylorus into the duodenum. The duodenal bulb, ampulla of Vater and descending duodenum were normal in appearance. The pancreatic duct was not cannulated by design. The common bile duct was cannulated without difficulty. A guidewire was inserted deeply into the common duct. The common bile duct appeared to have a small filling defect distally consistent with a stone. A small papillotomy was performed followed by balloon sweeping of the duct. No stone was extracted post-balloon sweeping of duct, but it was felt that the papillotomy was adequate and the small stone was likely floating up higher into the duct. The procedure was well-tolerated overall. There appeared to be excellent and prompt drainage of the contrast from the duct post procedure. Conclusions: Small common bile duct stone. Status post papillotomy and sweeping of the duct. Plan: Advance diet. Home later today if doing well. Electronically signed: Sebastien Lee M.D.
--- NOTE | 2016-10-22 11:05 | Fluoroscopy Report ---
FLUOROSCOPY ERCP BILIARY DUCT History: Evaluate for bile leak. Findings: 4 fluoroscopic images of the right upper quadrant were obtained by Dr. Lee during ERCP. The images demonstrate a filling defect in the common bile duct suspected to be a gallstone. Balloon sweep technique was performed. Papillotomy was performed. Final images demonstrate adequate drainage of the biliary system. Cholecystectomy clips are noted. No evidence for biliary leak. Impression: No evidence for biliary leak. Stone removal as described.
--- NOTE | 2016-10-22 12:43 | Post Anesthesia Evaluation ---
- Post Anesthesia Evaluation Patient Participated: No Airway Patent: Yes Stable Respiratory Function: Yes Nausea/Vomiting: No Temp > 96.8F: Yes Pain Manageable: Yes Adequeate Hydration: Yes Anesthesia Complications: No Block Receding Appropriately: Not Applicable Patient on Ventilator: No
--- NOTE | 2016-10-22 15:34 | Event Note ---
Date: 10/22/16 The patient underwent an ERCP today with extraction of a common bile duct stone. On evaluation at this time she is complaining of nausea. The abdomen is soft and nontender with normoactive peristalsis and with moderate distention. Impression: Common bile duct stone, status post ERCP and extraction. Mild ileus. Plan: Full liquid diet. Obtain CMP tomorrow.
[2016-10-22 20:33] VITALS: BP 111/72
[2016-10-23] MEDS: D5W/0.45% NACL/KCL 20 MEQ 20 MEQ/1,000 ML BAG IV SCH (00:18)
[2016-10-23] MEDS: UNASYN/NS 3 GM/100 ML 3 GM/100 ML BAG IV SCH ×2 (00:18→05:41)
[2016-10-23 05:54] LABS: Alanine Aminotransferase 206 units/L (7-56); Albumin 3.2 g/dL (3.9-5); Albumin/Globulin Ratio 1.3 %; Alkaline Phosphatase 141 units/L (35-129); Anion Gap 15 mmol/L; BUN/Creatinine Ratio 6.25; Bilirubin,Total 2.9 mg/dL (0.1-1.2); Blood Urea Nitrogen 5 mg/dL (7-17); Calcium 8.6 mg/dL (8.4-10.2); Carbon Dioxide 30 mmol/L (22-30); Glucose 112 mg/dL (65-100); Potassium 4.6 mmol/L (3.6-5.0); Sodium 142 mmol/L (137-145); Total Protein 5.7 g/dL (6.3-8.2)
--- NOTE | 2016-10-23 10:45 | Gastroenterology Progress Note ---
Assessment and Plan - Patient Problems (1) Obstructive jaundice Current Visit: Yes Status: Acute Plan to address problem: Resolving rapidly. S/p ERCP and papillotomy yesterday. T. bili down to 2.9 from 5.9. Stable to go home [facility]. Will see PRN. Thank you, Dr. Price for allowing me to participate in her care. (2) Acute calculous cholecystitis Current Visit: Yes Status: Acute (3) Abdominal pain Current Visit: No Status: Acute Qualifiers: Abdominal location: epigastric Qualified Code(s): R10.13 - Epigastric pain (4) Nausea & vomiting Current Visit: No Status: Acute Qualifiers: Vomiting type: unspecified Vomiting Intractability: non-intractable Qualified Code(s): R11.2 - Nausea with vomiting, unspecified Subjective Date of service: 10/23/16 Principal diagnosis: Choledocholithiasis Interval history: The patient reports feeling well today. Nausea has resolved. Tolerating liquids. Passing flatus. No significant discomfort Objective - Constitutional Vitals: Temp Pulse Resp BP Pulse Ox 98.6 F 83 20 111/72 98 10/22/16 20:32 10/22/16 20:32 10/22/16 20:32 10/22/16 20:32 10/22/16 20:32 General appearance: no acute distress - EENT ENT: hearing intact - Neck Neck: supple, normal ROM - Respiratory Respiratory effort: normal Respiratory: bilateral: CTA - Cardiovascular Rhythm: regular - Gastrointestinal General gastrointestinal: Present: soft, non-tender, non-distended, normal bowel sounds - Neurologic Neurological: alert and oriented x3 - Labs CBC & Chem 7: 10/20/16 05:09 10/23/16 04:55 Labs: Laboratory Results - last 24 hr 10/23/16 04:55 Sodium 142 Potassium 4.6 Chloride 102.0 Carbon Dioxide 30 Anion Gap 15 BUN 5 L Creatinine 0.8 Estimated GFR > 60 BUN/Creatinine Ratio 6.25 Glucose 112 H Calcium 8.6 Total Bilirubin 2.9 H AST 97 H ALT 206 H Alkaline Phosphatase 141 H Total Protein 5.7 L Albumin 3.2 L Albumin/Globulin Ratio 1.3 Laboratory Results - last 24 hr 10/23/16 04:55 Sodium 142 Potassium 4.6 Chloride 102.0 Carbon Dioxide 30 Anion Gap 15 BUN 5 L Creatinine 0.8 Estimated GFR > 60 BUN/Creatinine Ratio 6.25 Glucose 112 H Calcium 8.6 Total Bilirubin 2.9 H AST 97 H ALT 206 H Alkaline Phosphatase 141 H Total Protein 5.7 L Albumin 3.2 L Albumin/Globulin Ratio 1.3
--- NOTE | 2016-10-23 11:42 | Discharge Summary ---
Providers - Providers Date of Admission: 10/18/16 17:30 Date of discharge: 10/23/16 Attending physician: MARIA EUGENIA SIMON 10/21/16 08:51 Consult to Physician [CONS] Routine Consulting Provider: LIANA PLAZA Reason For Exam: hyperbilirubinemia Place consult to:: Dr. Liana Plaza Notified:: DR. PLAZA Was contact made?: Yes If yes, spoke with:: Venkat Plaza Time called:: 08:45 Primary care physician: CODE CLERK Hospitalization Condition: Stable Pertinent studies: Abdominal ultrasound. Procedures: 1. Laparoscopic cholecystectomy. #2. ERCP with common bile duct extraction. Hospital course: The patient was admitted to the hospital on 10/18/2016 with a diagnosis of acute cholecystitis and cholelithiasis. On the the patient was taken to the operating room and underwent laparoscopic cholecystectomy. The next day we noticed increasing the total bilirubin. Patient was kept in the hospital and on the third day the bilirubin was still a little higher. GI consult was obtained with Dr. Liana Plaza. On the the patient underwent an ERCP with extraction of a common bile duct stone. On the the patient is feeling well tolerating diet, urinating fine and having bowel movements. The wounds are dry clear and healing well. Disposition: DISCHARGED TO HOME OR SELFCARE Core Measure Documentation - Palliative Care Palliative Care/ Comfort Measures: Not Applicable - Core Measures Any of the following diagnoses?: none Exam - Constitutional Vitals: Temp Pulse Resp BP Pulse Ox 98.6 F 83 20 111/72 98 10/22/16 20:32 10/22/16 20:32 10/22/16 20:32 10/22/16 20:32 10/22/16 20:32 - Abdominal General gastrointestinal: Present: soft, non-tender, other (wounds dry, clear and healing well.) Plan Activity: no restrictions Diet: regular Wound: open to air Follow up with: MARIA EUGENIA SIMON MD [Staff Physician] - 7 Days Prescriptions: HYDROcodone/APAP 5-325 [Adrian 5-325 mg TAB] 1 each PO Q4H PRN #30 tablet PRN Reason: Pain, Moderate (4-6) Prochlorperazine [Compazine] 10 mg PO Q6H PRN #30 tablet PRN Reason: Nausea And Vomiting
== END 2016-10-23 13:50 | disposition home or self-care (01) | DRG 418 ==
LOC: ED 14:07 → 2B-SURG 17:30
PROVIDERS: ADMIT Specialist; ATTEND Specialist
PROC: 0FT44ZZ Resection of Gallbladder, Percutaneous Endoscopic Approach (ICD-10-PCS; principal; 2016-10-19)
PROC: 0DNT4ZZ (ICD-10-PCS; 2016-10-19)
PROC: 0FN44ZZ Release Gallbladder, Percutaneous Endoscopic Approach (ICD-10-PCS; 2016-10-19)
PROC: 0FC98ZZ Extirpation of Matter from Common Bile Duct, Via Natural or Artificial Opening Endoscopic (ICD-10-PCS; 2016-10-22)
DX: K80.63 Calculus of gallbladder and bile duct with acute cholecystitis with obstruction (principal); K91.86 Retained cholelithiasis following cholecystectomy; Z60.2 Problems related to living alone; K66.0 Peritoneal adhesions (postprocedural) (postinfection); Z79.899 Other long term (current) drug therapy
CPT/HCPCS: 36415; 74328; 76700; 80048; 80053; 80074; 83690; 85025; 88304; 96361; 96374; 96375; A4217; C1726; J0295; J0330; J0780; J1100; J1170; J1610; J2250; J2270; J2370; J2405; J2704; J2710; J3010; J7030; J7120; Q0164; Q9967

== ENCOUNTER 2017-03-07 08:06 | Outpatient (CLI) | payer BC ==
[2017-03-07 13:43] LABS: HIV-1 Antigen p24 Non React (Non React); HIVR-1/2 Ab Non React (Non React)
== END 2017-03-07 08:07 | disposition home or self-care (01) ==
LOC: LAB 08:06
PROVIDERS: ATTEND Obstetrics & Gynecology
DX: Z01.419 Encounter for gynecological examination (general) (routine) without abnormal findings (principal); Z79.899 Other long term (current) drug therapy
CPT/HCPCS: 36415; 80061; 80074; 83036; 86592; 87529; 87806